=== PATIENT | male | born 1930 | race Caucasian/White ===

== ENCOUNTER → 2018-08-01 | Outpatient (CLI) | payer MEDICARE, BC | END | disposition home or self-care (01) | LOC: CVU 07:14 | PROVIDERS: ATTEND Family Medicine | DX: I73.9 Peripheral vascular disease, unspecified (principal); I72.4 Aneurysm of artery of lower extremity; I10 Essential (primary) hypertension | CPT/HCPCS: 93922; 93926 ==

== ENCOUNTER → 2018-10-14 | Outpatient (CLI) | payer MEDICARE, BC | END | disposition home or self-care (01) | LOC: CVU 10:12 | PROVIDERS: ATTEND Internal Medicine | DX: I72.4 Aneurysm of artery of lower extremity (principal); I77.89 Other specified disorders of arteries and arterioles; Z98.890 Other specified postprocedural states | CPT/HCPCS: 93922; 93926 ==